=== PATIENT | female | born 1970 | race Caucasian/White ===

== ENCOUNTER 2016-12-01 19:42 | Emergency (ER) | payer BC ==
[~2016-12-01] VITALS: Ht 180.3 cm; Wt 158.8 kg
--- NOTE | ~2016-12-01 | CR72 ---
[facility] A Service of [facility] & [facility] RADIOLOGY TEXT RESULTS PATIENT: LALI TOLEDO LOCATION: SED : 70 UNIT #: [id number] AGE: [address]: Mo Aranda MD SEX: F ORDER DR: [id number] [address] [address] [id number] E MR#: [id number] Acc #: [id number] NAME: LALI TOLEDO : 1970 SEX: F STUDY DATE/TIME: 12/01/2016 20:52 UNIT: SED ROOM: STUDY DESCRIPTION: CR Chest Single View Portable Attending Physician: Mo Aranda M.D. Ordering Physician: Mo Aranda M.D. MEDICAL IMAGING REPORT This report is preliminary unless electronic signature is present. EXAM Portable chest 12/01/2016. HISTORY 46-year-old female with chest pain and shortness of air beginning yesterday. COMPARISON None available. FINDINGS Frontal chest demonstrates clear lungs. No pleural effusion or pneumothorax. Heart size and mediastinum are normal. Pulmonary vasculature normal. IMPRESSION No acute cardiopulmonary findings. Dictated by... Fermin Velazquez M.D. THIS IS AN ELECTRONICALLY VERIFIED REPORT Fermin Velazquez M.D. at 12/02/2016 2:23 PM AMANDA/miguel angel TD: 12/02/2016 13:05 JOB #: [id number] MEDICAL IMAGING REPORT Page 1 of 1
--- NOTE | ~2016-12-01 | EKG ---
PATIENT: LALI TOLEDO UNIT #: [id number] Ventricular Rate: 132 BPM Atrial Rate: 132 BPM P-R Interval: 124 ms QRS Duration: 90 ms Q-T Interval: 296 ms QTC Calculation(Bezet): 438 ms P [place]: 66 degrees Calculated R [place]: -14 degrees Calculated T [place]: 38 degrees Diagnosis Line: Sinus tachycardia Diagnosis Line: Nonspecific ST and T wave abnormality Diagnosis Line: Abnormal ECG Diagnosis Line: No previous ECGs available Diagnosis Line: Confirmed by MILAN BARRERA MD ([id number]) on Diagnosis Line: 12/02/2016 3:50:36 PM INTERPRETING MD: BRUCE MATTHEWS
--- NOTE | ~2016-12-01 | CT16 ---
[facility] A Service of [facility] RADIOLOGY TEXT RESULTS PATIENT: LALI TOLEDO LOCATION: SED : 70 UNIT #: [id number] AGE: [address]: Mo Aranda MD SEX: F ORDER DR: [id number] [address] [address] [id number] E MR#: [id number] Acc #: [id number] NAME: LALI TOLEDO : 1970 SEX: F STUDY DATE/TIME: 12/01/2016 22:01 UNIT: SED ROOM: STUDY DESCRIPTION: CT Angio Chest for PE Attending Physician: Mo Aranda M.D. Ordering Physician: Mo Aranda M.D. MEDICAL IMAGING REPORT This report is preliminary unless electronic signature is present. EXAM CTA chest with contrast, PE protocol, 12/01/2016. HISTORY 46-year-old female with chest pain beginning yesterday. COMPARISON None TECHNIQUE Helical scan performed through the chest following the timed bolus administration of IV contrast, per PE protocol. Coronal 3-D MIP reconstructions. Sagittal reformatted images. This CT exam was performed with one or more of the following radiation dose reduction techniques: automatic exposure control, adjustment of mA and/or kV according to patient size, and iterative reconstruction. FINDINGS The examination is limited secondary to bolus timing and patient body habitus. There is adequate opacification of the first through third order pulmonary arteries with no filling defects demonstrated. More distal pulmonary arteries are not well opacified, and small distal pulmonary emboli are not excluded. Thoracic aorta is normal in course and caliber without dissection. Heart size normal. No pericardial effusion. No pleural effusion. No pneumothorax. No parenchymal infiltrates. Visualized upper abdomen demonstrates hepatic steatosis. There is a 3-cm hypoattenuating lesion in the right hepatic lobe that is nonspecific. Further characterization with nonemergent multiphase MRI suggested. No acute bony abnormality. IMPRESSION [facility] A Service of [facility] RADIOLOGY TEXT RESULTS PATIENT: LALI TOLEDO LOCATION: SED : 70 UNIT #: [id number] AGE: [address]: Mo Aranda MD SEX: F ORDER DR: 1. Examination limited by contrast bolus and patient body habitus. No filling defects noted in the first through third order pulmonary arteries. The more distal pulmonary arteries are incompletely visualized, and small distal pulmonary emboli are not excluded on the exam. 2. Negative for thoracic aortic aneurysm/dissection. 3. No acute pulmonary process. 4. Hepatic steatosis with an indeterminant hypoattenuating lesion in the right hepatic lobe measuring 3 cm. Suggest further characterization with nonemergent multiphase MRI when the patient is clinically able. Dictated by... Ferimn Velazquez M.D. THIS IS AN ELECTRONICALLY VERIFIED REPORT Fermin Velazquez M.D. at 12/02/2016 2:33 PM Marcus TD: 12/02/2016 13:23 JOB #: [id number] MEDICAL IMAGING REPORT Page 1 of 1
[2016-12-01] MEDS ORDERED: WELLBUTRIN75 M1 PO (19:58)
[2016-12-01] MEDS ORDERED: ZOLOFT PO (19:58)
[2016-12-01] MEDS ORDERED: DICLOFENAC PO (19:59)
[2016-12-01] MEDS ORDERED: ALLERGY (19:59)
[2016-12-01] MEDS ORDERED: VITAMIN D32000 UNIT PO (20:00)
[2016-12-01 20:08] LABS: BASOPHIL# 0.1 X10e3 (0-0.3); BASOPHIL% 1.1 % (0-2.5); EOSINOPHIL# 0.1 X10e3 (0-0.7); EOSINOPHIL% 1.6 % (0.0-7.0); HEMATOCRIT 33.9 % (35.0-45.0); HEMOGLOBIN 10.7 gm/dL (12.0-16.0); LYMPHOCYTE# 0.8 X10e3 (1.0-3.5); LYMPHOCYTE% 13.7 % (17.0-45.0); MEAN CELL VOLUME 76.5 FL (83-96); MEAN CORPUSCULAR HEMOGLOBIN 24.1 PG (28-34); MEAN CORPUSCULAR HGB CONC 31.6 g/dL (30-36); MEAN PLATELET VOLUME 7.9 FL (6.5-11.5); MONOCYTE# 0.1 X10e3 (0-1.0); MONOCYTE% 2.3 % (3.0-12.0); NEUTROPHIL# 4.5 X10e3 (1.5-7.1); NEUTROPHIL% 81.3 % (40-75); PLATELET COUNT 369 X10e3 (140-420); RED BLOOD COUNT 4.43 X10e (3.90-5.30); RED CELL DISTRIBUTION WIDTH 17.9 % (11.0-15.5); WHITE BLOOD COUNT 5.6 X10e3 (4.0-10.5)
[2016-12-01 20:11] LABS: PROTHROMBIN TIME (PATIENT) 11.6 SECONDS (9.5-12.4)
[2016-12-01 20:15] LABS: POC - CKMB 1.9 ng/mL (0.0-7.9); POC - TROPONIN <0.05 ng/mL (<=0.05)
[2016-12-01 20:16] LABS: DIFF IND NO
[2016-12-01 20:18] LABS: PARTIAL THROMBOPLASTIN TIME 26.1 SECONDS (25.6-38.1)
[2016-12-01 20:19] LABS: ALBUMIN SERUM 4.2 g/dL (3.5-5.0); BILIRUBIN, DIRECT 0.1 mg/dL (0.0-0.2); BILIRUBIN,INDIRECT 0.5 mg/dL (0.0-0.9); BILIRUBIN,TOTAL 0.6 mg/dL (0.2-2.0); BUN/CREATININE RATIO 11.81; CREATININE SERUM 1.1 mg/dL (0.6-1.4); GLOM FILT RATE Estimated 60.2 mL/min (>60); POTASSIUM 3.6 mmol/L (3.5-5.1); PROTEIN TOTAL SERUM 8.6 g/dL (6.0-8.3)
[2016-12-01 22:00] LABS: POC - CKMB <1.0 ng/mL (0.0-7.9); POC - TROPONIN <0.05 ng/mL (<=0.05)
[2016-12-01 22:40] LABS: URINE SOURCE CLEAN CATCH
[2016-12-01 22:42] LABS: URINE APPEARANCE CLEAR; URINE BLOOD 2+ (NEG); URINE COLOR YELLOW; URINE GLUCOSE NEG (NORM); URINE KETONE NEG (NEG); URINE LEUKOCYTE ESTERASE TRACE (NEG); URINE NITRATE NEG (NEG); URINE PROTEIN NEG (NEG); URINE SPECIFIC GRAVITY <=1.005 (1.003-1.035); URINE UROBILINOGEN 0.2 MG/DL (NORM)
[2016-12-01 22:43] LABS: MICRO INDICATED? YES; URINE BILIRUBIN NEG (NEG)
[2016-12-01 22:45] LABS: CULTURE INDICATED? YES; URINE BACTERIA 1+ (NEG); URINE SQUAMOUS EPITHELIAL CELL FEW /[HPF]
== END 2016-12-02 00:07 | disposition home or self-care (01) ==
LOC: SED 19:42 → CED 20:38 → SED 20:38
PROVIDERS: Emergency Medicine
DX: N39.0 Urinary tract infection, site not specified (principal); R00.0 Tachycardia, unspecified; F41.9 Anxiety disorder, unspecified; G43.909 Migraine, unspecified, not intractable, without status migrainosus; Z79.899 Other long term (current) drug therapy; Z88.2 Allergy status to sulfonamides
CPT/HCPCS: 36415; 71010; 71275; 80048; 80076; 81003; 82553; 83605; 84484; 85025; 85610; 85730; 87040; 87077; 87086; 87088; 87186; 93005; 96374; 96375; 99285; J0696; J1885; Q9967